=== PATIENT | female | born 1950 | race Caucasian/White ===

== ENCOUNTER 2021-08-11 10:09 | Emergency (ER) | payer MEDICARE, OTHER ==
[~2021-08-11] VITALS: Ht 167.6 cm; Wt 70.3 kg
[2021-08-11] MEDS ORDERED: ONDANSETRON HCL/PF 4 MG/2 ML VIAL IVP ONE (10:30)
[2021-08-11] MEDS ORDERED: IV NS 0.9% 1,000 ML BAG IV ONE (10:30)
--- NOTE | 2021-08-11 10:30 | NUR ---
TO ER BED 6, C/O NAUSEA AND DIARRHEA [id number], VOMITED THIS MORNING, DENIES PAIN, [id number], BREATHING EVEN AND NON LABORED
[2021-08-11] MEDS ORDERED: ONDANSETRON HCL/PF 4 MG/2 ML VIAL ONE (10:48)
[2021-08-11 10:57] LABS: BASOPHILS % (AUTO) 0.5 % (0.0-2.0); EOSINOPHILS % (AUTO) 1.9 % (0.0-6.0); HEMATOCRIT 43 % (33-45); HEMOGLOBIN 14.6 g/dL (11.5-14.8); LYMPHOCYTES % (AUTO) 9.4 % (20.0-44.0); MEAN CORPUSCULAR HGB CONC 34 g/dl (31.0-36.0); MEAN CORPUSCULAR VOLUME 92 fL (82-100); MONOCYTES # (AUTO) 0.6 K/uL (0.1-1.30); MONOCYTES % (AUTO) 6.4 % (2.0-12.0); NEUTROPHILS # (AUTO) 8.3 K/uL (1.8-8.9); NEUTROPHILS % (AUTO) 81.8 % (43.0-81.0); PLATELET COUNT (AUTO) 218 K/uL (150-450); RED BLOOD CELL COUNT(AUTO) 4.71 MIL/uL (4.0-5.2); WHITE BLOOD COUNT (AUTO) 10.1 K/uL (4.3-11.0)
--- NOTE | 2021-08-11 11:01 | NUR ---
TAKEN TO CT
[2021-08-11 11:07] LABS: CALCIUM, SERUM 9.2 mg/dL (8.5-10.1); CARBON DIOXIDE 30 mmol/L (21-32); CHLORIDE 102 mmol/L (98-107); CREATININE 0.9 mg/dL (0.6-1.3); GLUCOSE 107 mg/dL (74-106); POTASSIUM 3.7 mmol/L (3.5-5.1); SODIUM SERUM 141 mmol/L (136-145); UREA NITROGEN, BLOOD 11 mg/dL (7-18)
[2021-08-11 11:13] LABS: ALANINE AMINOTRANSFERASE 116 U/L (12-78); ALBUMIN 4.2 g/dL (3.4-5.0); ALKALINE PHOSPHATASE 282 U/L (46-116); ASPARTATE AMINOTRANSFERASE 71 U/L (15-37); BILIRUBIN,DIRECT 0.2 mg/dL (0.0-0.2); BILIRUBIN,TOTAL 0.5 mg/dL (0.2-1.0); LIPASE 86 U/L (73-393); TOTAL PROTEIN, SERUM 7.9 g/dL (6.4-8.2)
--- NOTE | 2021-08-11 11:26 | NUR ---
UNABLE TO PROVIDE STOOL SAMPLE AT THIS TIME
--- NOTE | 2021-08-11 12:02 | NUR ---
STILL UNABLE TO PROVIDE STOOL SAMPLE
[2021-08-11] MEDS ORDERED: AMOX/CLAVULANATE 875 MG TABLET ONE (12:59)
[2021-08-11] MEDS ORDERED: AMOX/CLAVULANATE 875 MG TABLET PO ONE (13:00)
[2021-08-11] MEDS ORDERED: ONDA4TAB11 PO (13:13)
[2021-08-11] MEDS ORDERED: AMOX-430 PO (13:13)
[2021-08-11 13:28] VITALS: BP 130/72
== END 2021-08-11 13:28 | disposition home or self-care (01) ==
LOC: ER 10:09
DX: K52.9 Noninfective gastroenteritis and colitis, unspecified (principal); D25.9 Leiomyoma of uterus, unspecified; R74.01 Elevation of levels of liver transaminase levels; E78.00 Pure hypercholesterolemia, unspecified; G43.909 Migraine, unspecified, not intractable, without status migrainosus
CPT/HCPCS: 36415; 74176; 76705; 80048; 80076; 83690; 84484; 85025; 96361; 96374; 99285; J2405; J7030